=== PATIENT | male | born 2000 | race Caucasian/White ===

== ENCOUNTER → 2020-10-28 | Day surgery (SDC) | payer MEDICARE, OTHER ==
[~2020-10-28] VITALS: Ht 165.1 cm; Wt 65.8 kg
[~2020-10-28] MED LIST: MINOCYCLINE HCL45 MG PO; RETIN-A20 GM TOP; ZOLOFT50 MG PO; ZYRTEC10 M3 PO
[2020-10-28 08:58] LABS: BASOPHIL 1.5 % (0-2); EOSINOPHIL 2.9 % (0-5); HCT 50.4 % (42.0-52.0); HGB 16.8 g/dl (13.2-18.0); MCH 30.3 pg (25.0-31.0); MCHC 33.3 g/dL (32.0-36.0); MONOCYTE 12.6 % (0-12); MPV 12.4 fL (6.0-9.5); NEUTROPHIL 53.8 % (41-80); NRBC 0; PLT 211 K/uL (150-400); RBC 5.54 M/uL (4.70-6.00); WBC 5.5 K/uL (4.0-10.5)
== END | disposition home or self-care (01) ==
LOC: FAS 07:53
PROVIDERS: Oral & Maxillofacial Surgery
DX: K01.1 Impacted teeth (principal); F84.0 Autistic disorder; F32.9 Major depressive disorder, single episode, unspecified; F41.9 Anxiety disorder, unspecified; K21.9 Gastro-esophageal reflux disease without esophagitis; Z79.899 Other long term (current) drug therapy
CPT/HCPCS: 36415; 85025; J1100; J2250; J2405; J2704; J7120